=== PATIENT | female | born 1965 | race Caucasian/White ===

== ENCOUNTER 2020-07-09 09:55 | Outpatient (CLI) | payer BC, SELFPAY ==
--- NOTE | ~2020-07-09 | US_ITS ---
EXAMINATION: US venous doppler [facility] DATE: 07/09/2020 10:38 INDICATION: Left lower limb swelling. TECHNIQUE: Grayscale ultrasound images without and with compression and Doppler ultrasound images of the left lower extremity veins were obtained. COMPARISON: Ultrasound 09/18/2019 FINDINGS: The visualized portions of left common femoral vein, profunda (deep) femoral vein, femoral vein, popl iteal vein, peroneal veins, posterior tibial veins, and greater saphenous vein outflow are patent. IMPRESSION: 1. No deep venous thrombosis. Reviewed, dictated and finalized at location A.
== END 2020-07-09 09:56 | disposition home or self-care (01) ==
LOC: CHSIMG 10:01
PROVIDERS: PCP Family Medicine
DX: M79.89 Other specified soft tissue disorders (principal); M25.562 Pain in left knee
CPT/HCPCS: 93971

== ENCOUNTER → 2020-09-24 10:55 | Outpatient (CLI) | payer BC, SELFPAY ==
--- NOTE | ~2020-09-24 | CT_ITS ---
EXAMINATION: CT knee LT wo con DATE: 09/24/2020 11:15 INDICATION: Left knee pain post total knee replacement TECHNIQUE: High resolution computed tomography (CT) of the left knee was performed without intravenou s contrast. Additional sagittal and coronal reconstructions were performed. Automated exposure contro l and iterative reconstruction technique were employed. The dose-length product was 186.30 mGy-cm. COMPARISON: None FINDINGS: Left total knee arthroplasty with patellar resurfacing which appears well seated with no periprosthet ic lucency to suggest loosening or infection. No fracture. Negligible physiologic amount of fluid at the suprapatellar pouch. Sagittally oriented band of postoperative scarring the subcutaneous fat ante rior to the knee. Soft tissues are otherwise unremarkable. IMPRESSION: 1. Expected appearance of a left total knee arthroplasty. No joint effusion or acute osseous abnormal ity. Reviewed, dictated and finalized at [facility]. R IMPRESSION: 1. Expected appearance of a left total knee arthroplasty. No joint effusion or acute osseous abnormality.
== END ==
DX: M25.562 Pain in left knee (principal); Z96.652 Presence of left artificial knee joint
CPT/HCPCS: 73700

== ENCOUNTER → 2020-11-30 11:03 | Outpatient (CLI) | payer BC, SELFPAY ==
--- NOTE | ~2020-11-30 | MM_ITS ---
EXAMINATION: MM screening fidelina BI w valentina HISTORY: Screening TECHNIQUE: Craniocaudal and mediolateral oblique 3-D tomosynthesis images were obtained and synthetic 2-D images were generated. CAD analysis was submitted and interpreted. COMPARISON: No prior mammogram is available for comparison at this institution. BREAST PARENCHYMAL COMPOSITION: There are scattered areas of fibroglandular density. FINDINGS: There is no evidence of suspicious mass, calcification, or architectural distortion to sugg est malignancy in either breast. There has been no suspicious interval change. IMPRESSION: 1. No mammographic evidence of malignancy. 2. Recommend routine screening mammography in one year. BI-RADS Category 1: Negative Reviewed, dictated and finalized at location A. E HOST
== END ==
PROVIDERS: PCP Family Medicine; Visit Provider Family Medicine
DX: Z12.31 Encounter for screening mammogram for malignant neoplasm of breast (principal)
CPT/HCPCS: 77063; 77067

== ENCOUNTER 2021-02-03 10:32 | Outpatient (CLI) | payer BC, SELFPAY ==
--- NOTE | ~2021-02-03 | CT_ITS ---
EXAMINATION: CT lung screening DATE: 02/03/2021 11:23 INDICATION: History of tobacco dependence. TECHNIQUE: Computed tomography (CT) of the chest was performed without intravenous contrast. The dose -length product was 222.67 mGy-cm. Automated exposure control and iterative reconstruction technique were employed. COMPARISON: None FINDINGS: Mild mediastinal lymphadenopathy, likely reactive. No significant pleural or pericardial ef fusion. Heart size normal. There is high density material dependently in the gallbladder which may re present stone or sludge. There are punctate nonobstructing right renal stones. No endobronchial lesio ns. There is some solid nodule in the lingula measuring 1.4 x 0.6 cm. No other pulmonary nodules or m asses. Mild thoracic spondylosis. No lytic or blastic lesions are identified. IMPRESSION: 1. Lung-Rads 4A: Three-month low dose CT or PET CT follow-up recommended. Reviewed, dictated and finalized at location B.
--- NOTE | ~2021-02-03 | XR_ITS ---
EXAMINATION: XR thoracic spine 3V EXAM DATE: 02/03/2021 11:22 INDICATION: Pain from pedicle around rib cage mid to low R ant ribs. TECHNIQUE: Frontal and lateral projections of the thoracic spine as well as lateral swimmers projecti on of the upper thoracic spine for interpretation. Comparison is made to prior examination from 2012. FINDINGS: There is mild mid thoracic disc disease. The vertebral body and disc heights are otherwise well maintained. The vertebral bodies are aligned in the AP dimension. The pedicles are symmetric. T here are no bony erosions identified. Paraspinal soft tissue is unremarkable. IMPRESSION: Mild mid thoracic disc disease. Reviewed, dictated and finalized at location A.
== END 2021-02-03 10:33 | disposition home or self-care (01) ==
PROVIDERS: PCP Family Medicine; Visit Provider Family Medicine
DX: M54.14 Radiculopathy, thoracic region (principal); Z12.2 Encounter for screening for malignant neoplasm of respiratory organs; Z87.891 Personal history of nicotine dependence
CPT/HCPCS: 71271; 72072

== ENCOUNTER 2021-02-04 15:42 | Outpatient (CLI) | payer BC, SELFPAY ==
--- NOTE | ~2021-02-04 | CT_ITS ---
EXAMINATION: CT abdomen w con DATE: 02/04/2021 16:39 INDICATION: Left upper quadrant abdominal pain. TECHNIQUE: Computed tomography (CT) of the abdomen was performed with 100 mL Omnipaque 350 intravenou s contrast. Automated exposure control and iterative reconstruction technique were employed. The dose -length product was 988.59 mGy-cm. COMPARISON: CT abdomen and pelvis 06/03/15 FINDINGS: The visualized portions of the lung bases demonstrate minimal atelectasis. No pleural effus ion. The heart size is normal. No pericardial effusion. There are chronic low-attenuation lesions in the liver measuring up to 10 mm, likely benign. There is a chronic 10 mm hyperenhancing mass in right hepatic lobe, likely benign. There are gallstones in the gallbladder, which is normal in size. The s pleen, pancreas, and adrenal glands are normal. There are cysts in the kidneys measuring up to 11 mm on the right. There is a 2 mm stone in right kidney. There is diverticulosis of the colon without karina dence of diverticulitis. There are no dilated loops of bowel. The appendix is normal. There are no pa thologically enlarged lymph nodes. There is no free intraperitoneal fluid. There is mild lumbar spond ylosis. IMPRESSION: 1. Cholelithiasis. No evidence of acute cholecystitis. Reviewed, dictated and finalized at location A.
== END 2021-02-04 15:43 | disposition home or self-care (01) ==
LOC: CHSIMG 15:44
PROVIDERS: PCP Family Medicine; Visit Provider Family Medicine
DX: R10.12 Left upper quadrant pain (principal)
CPT/HCPCS: 74160; Q9967

== ENCOUNTER 2021-06-07 15:19 | Emergency (ER) | payer BC, SELFPAY ==
--- NOTE | ~2021-06-07 | CT_ITS ---
EXAMINATION: CTA chest PE protocol DATE: 06/07/2021 16:24 INDICATION: Chest and epigastric pain TECHNIQUE: Computed tomography angiography (CTA) of the chest was performed with 100 mL Omnipaque-350 intravenous contrast timed to evaluate the pulmonary arteries. Coronal maximum intensity projection 3D-reconstructions were created by the technologist. The dose-length product (DLP) was 867.98 mGy-cm. Automated exposure control and iterative reconstruction technique were employed. COMPARISON: 02/03/2021 FINDINGS: The pulmonary arteries are well-opacified. No pulmonary embolism is identified. There is mi ld emphysema. The lungs are free of acute opacities. There is no pleural effusion or pneumothorax. Th e previously described area of infection/inflammation of the lingula has resolved. The heart size is normal. There is stable, mild right paratracheal lymphadenopathy, likely reactive. Cholelithiasis is noted. There is mild thoracic spondylosis. IMPRESSION: 1. No pulmonary embolism or acute cardiopulmonary abnormality. 2. Resolved infection/inflammation of the lingula. Reviewed, dictated and finalized at location A.
--- NOTE | 2021-06-07 15:23 | ECG_ITS ---
Measurements Intervals [place] Rate: 54 P: 20 NE: 197 QRS: -24 QRSD: 118 T: -8 QT: 477 QTc: 453 Interpretive Statements SINUS BRADYCARDIA INTRAVENTRICULAR CONDUCTION DELAY EARLY PRECORDIAL R/S TRANSITION VOLTAGE CRITERIA FOR LVH BORDERLINE T WAVE ABNORMALITY- INFERIOR LEADS BORDERLINE ECG Electronically Signed On 06-07-2021 18:20:20 CDT by Vincenzo Ramires D.O.
--- NOTE | 2021-06-07 15:23 | ED.CHESTPAIN ---
HPI - Chest Pain General Chief Complaint: Chest Pain Stated Complaint: ambulance Time Seen by Provider: 06/07/21 15:23 Source: patient Mode of arrival: ambulatory Limitations: no limitations History of Present Illness HPI narrative: Patient comes in with pain which started at 2am, and has been severe since that time, but was relieved completely after she got a little fentanyl from the ambulance. This extended into her lower sternal area. She had a brief spell of diaphoresis with this, and some mild nausea. These spontaneously resolved. She denies shortness of breath, cough fever and chills. She denies any chest pain, with this. complaint: chest pain Onset (ago): hour(s) Timing of current episode: constant Prior episodes: No Onset: during rest Pain location: substernal and epigastric Pain radiation: none Severity: severe Quality: burning Relieving factors: nothing Exacerbating factors: nothing Associated symptoms: nausea Treatment prior to arrival: aspirin Risk Factors Coronary artery disease risk factors: smoking history Pulmonary embolism risk factors: clotting disorder Related Data Home Medications Medication Instructions Recorded Confirmed escitalopram oxalate 10 mg PO DAILY 06/07/21 06/07/21 levothyroxine 125 mcg PO DAILY 06/07/21 06/07/21 Allergies Allergy/AdvReac Type Severity Reaction Status Date / Time No Known Allergies Allergy Unknown Verified 06/07/21 15:53 Review of Systems Constitutional: Constitutional: Reports no additional constitutional complaints Eyes: Eyes: Reports no additional eye complaints ENT: Reports system reviewed and no additional complaints, except as documented Cardiovascular: Cardiovascular: Reports no additional cardiovascular complaints Respiratory: Respiratory: Reports no additional respiratory complaints Gastrointestinal: Gastrointestinal: Reports abdominal pain and Reports nausea Genitourinary: Genitourinary: Reports no additional female genitourinary complaints Musculoskeletal: Musculoskeletal: Reports no additional musculoskeletal complaints Integumentary/Breasts: Skin/Breast: Reports system reviewed and no additional complaints, except as docu Neurologic: Reports system reviewed and no additional complaints, except as documented Psychiatric: Psychiatric: Reports no additional psychiatric complaints Endocrine: Endocrine: Reports no additional endocrine complaints Hematologic/Lymphatic: Hematologic/Lymphatic: Reports no additional hematologic/lymphatic complaints Allergic/Immunologic: Allergic/Immunologic: Reports no additional allergic/immunologic complaints PMFSH Past Medical History Medical History (Updated 06/07/21 @ 19:14 by Cody Xiao MD) delivery delivered Chronic GERD Depression Factor 5 Leiden mutation, heterozygous Hypothyroid Surgical History Surgical History H/O hand surgery H/O knee surgery Family History Family History Mother Diabetes mellitus Family history of malignant neoplasm Other No significant family history Social History Social History (Updated 06/07/21 @ 19:15 by Cody Xiao MD) Smoking status: Former smoker Alcohol intake: current Alcohol use details: minimal Gender identity (if verbalized by the patient): Female Exam Const: General: healthy appearing and no acute distress Orientation/consciousness: patient oriented x3 HENMT: Head: normal to inspection Ears: external ears normal and TM's normal bilaterally General nose exam: Normal external nose present Mouth: Yes Normal oral and palatal mucosa present Throat: posterior oropharynx normal Eyes: Conjunctivae: conjunctivae normal Neck: Neck: normal visual inspection and no lymphadenopathy Chest: Chest palpation & inspection: normal inspection of the chest Resp: Effort & Inspection: normal respiratory effort Auscul
[2021-06-07 15:39] VITALS: BP 132/73; PULSE 56; RESP 20; TEMP 36.7; O2SAT 99
[2021-06-07 15:39] LABS: Basophils Absolute Auto 0.04 K/mm3 (0.00-0.10); Basophils Percent Auto 0.6 % (0.0-1.0); Eosinophils Absolute Auto 0.13 K/mm3 (0.02-0.50); Eosinophils Percent Auto 1.8 % (1.0-6.0); Hematocrit 42.5 % (35.0-49.0); Hemoglobin 14.3 g/dL (12.0-15.0); Immature Granulocyte Absolute 0.02 K/mm3 (0.00-0.00); Immature Granulocyte Percent A 0.3 % (0.0-0.0); Lymphocytes Absolute Auto 2.36 K/mm3 (1.10-4.50); Lymphocytes Percent Auto 32.7 % (18.0-42.0); Mean Corpuscular HGB Conc 33.6 g/dL (32.0-36.0); Mean Corpuscular Hemoglobin 30.8 pg (27.0-31.0); Mean Corpuscular Volume 91.4 fL (78.0-102.0); Mean Platelet Volume 11.5 fl (9.2-11.8); Monocytes Absolute Auto 0.38 K/mm3 (0.10-0.90); Monocytes Percent Auto 5.3 % (2.0-11.0); Neutrophils Absolute Auto 4.3 K/mm3 (1.7-7.2); Neutrophils Percent Auto 59.3 % (50.0-70.0); Platelet Count Result 204 K/mm3 (150-420); Red Blood Count 4.65 M/mm3 (4.20-5.40); Red Cell Distribution Width 12.4 % (11.6-14.4); White Blood Count 7.2 K/mm3 (4.8-10.8)
[2021-06-07 15:51] VITALS: PULSE 56
[2021-06-07 15:52] LABS: D Dimer 0.99 mg/L (0.19-0.50)
[2021-06-07 15:58] LABS: Lactic Acid Reflex 2.4 mmol/L (0.4-2.0)
[2021-06-07] MEDS: MAG HYDROX/ALUMINUM HYD/SIMETH 30 ML, PHENobarb/HYOSCY/ATROPINE/SCOP 32.4 MG, LIDOCAINE... PO (15:58)
[2021-06-07 15:59] LABS: Alanine Aminotransferase 39 U/L (14-59); Albumin Level 3.7 g/dL (3.4-5.0); Alkaline Phosphatase 87 U/L (46-116); Anion Gap 13 mmol/L (8-16); Aspartate Amino Transferase 20 U/L (15-37); Bilirubin,Total 0.4 mg/dL (0.00-1.00); Blood Urea Nitrogen 14 mg/dL (7-18); Calcium 8.7 mg/dL (8.5-10.1); Carbon Dioxide 25 mmol/L (21-32); Chloride 106 mmol/L (98-108); Estimated CRCL calculation 59 ml/min; Estimated Glomerular Filt Rate 53; Glucose 130 mg/dL (70-99); NT Pro B Type Natriuretic Pept 149 pg/mL (0-125); Osmolality Calculated 300 mOsm/kg (285-295); Potassium 3.3 mmol/L (3.5-5.1); Sodium 144 mmol/L (136-145); Total Protein 6.8 g/dL (6.4-8.2); Troponin I 4.3 ng/L (0.00-60.4)
[2021-06-07 15:59] LABS: HCO3 ABG 23.5 mmol/L (23-29); Oxygen Content ABG 19.7 %vol (16.0-22.0); Oxygen Saturation ABG 96.8 % (95-97); Oxyhemoglobin 96.6 % (94-100); PCO2 ABG 31.6 mmHg (35-45); PO2 ABG 86.2 mmHg (80-90); Total Hemoglobin 14.5 g/dL; pH ABG 7.49 (7.35-7.45)
[2021-06-07 16:00] VITALS: BP 145/82; PULSE 58; RESP 20; O2SAT 98
[2021-06-07 16:00] LABS: Site Drawn LEFT RADIAL
[2021-06-07 16:01] LABS: Device ROOM AIR; Modified Allen's Test Pass
[2021-06-07 17:20] VITALS: BP 144/71; PULSE 62; RESP 20; O2SAT 99
[2021-06-07] MEDS: POTASSIUM BICARBONATE 25 MEQ TABEF 50 MEQ PO (17:22)
[2021-06-07] MEDS: SODIUM CHLORIDE 0.9% IV 1,000 ML 999 ML IV CONT (17:22)
[2021-06-07 18:00] VITALS: BP 159/92; PULSE 65; RESP 20; O2SAT 100
[2021-06-07 18:37] LABS: Reflex Lactic Acid Yes or No Add Lactic
[2021-06-07 18:49] LABS: Troponin I 4.3 ng/L (0.00-60.4)
[2021-06-07 19:00] VITALS: BP 134/66; PULSE 60; RESP 20; O2SAT 95
== END 2021-06-07 19:02 | disposition home or self-care (01) ==
PROVIDERS: Emergency Provider Emergency Medicine; PCP Family Medicine
DX: R10.13 Epigastric pain (principal)
CPT/HCPCS: 36415; 36600; 71275; 80053; 82805; 83605; 83880; 84484; 85025; 85380; 93005; 96360; 99283; 99284; A9270; J7030; Q9967

== ENCOUNTER 2021-06-20 08:07 | Outpatient (CLI) | payer BC, SELFPAY ==
--- NOTE | ~2021-06-20 | US_ITS ---
EXAMINATION: US right upper quadrant DATE: 06/20/2021 08:47 INDICATION: Right upper quadrant abdominal pain. TECHNIQUE: Multiple grayscale and Doppler ultrasound images of the abdomen were obtained. COMPARISON: CT abdomen and pelvis 02/04/2021, 06/03/2015 FINDINGS: The visualized portions of the head and body of the pancreas are normal. There is diffuse h epatic steatosis. There are 2 chronic hypoechoic masses in the liver measuring up to 1.2 cm, likely b enign. There is normal flow in main portal vein. The gallbladder is normal in size and contains galls tones. No gallbladder wall thickening or sonographic Lehman sign. The common duct is normal and measu res 5 mm. IMPRESSION: 1. Cholelithiasis. No evidence of acute cholecystitis. 2. Diffuse hepatic steatosis. Reviewed, dictated and finalized at location A.
== END 2021-06-20 08:08 | disposition home or self-care (01) ==
LOC: CHSIMG 08:11
PROVIDERS: PCP Family Medicine; Visit Provider Family Medicine
DX: R10.9 Unspecified abdominal pain (principal)
CPT/HCPCS: 76705

== ENCOUNTER 2021-07-04 07:48 | Outpatient (CLI) | payer BC, SELFPAY ==
--- NOTE | 2021-07-04 | ECHO_ITS ---
Patient Info Name: Pennie Burgos Age: 56 years : 1965 Gender: Female Ht: 65 in Wt: 207 lbs BSA: 2.11 m2 HR: 69 bpm BP: 152 / 93 mmHg Heart Rhythm: Sinus Rhythm Exam Date: 07/04/2021 8:16 AM Exam Location: [facility] Patient Status: Outpatient Admit Date: 07/04/2021 Staff Ordering Physician: Rm Lovett MD Business Broker: Danay Mcconnell RDCS Attending Provider: Rm Lovett MD Referring Physician: Bony TAVAREZ; Exam Type: CA echo doppler color flow Study Info Indications R94.31 - Abnormal electrocardiogram ECG EKG Complete two-dimensional, color flow and Doppler transthoracic echocardiogram is performed. Summary 1. Complete two-dimensional, color flow and Doppler transthoracic echocardiogram is performed. 2. Left ventricular chamber dimension is normal. 3. Left ventricular systolic function is normal, estimated at 60-65%. 4. There is mildly increased left ventricular wall thickness. 5. The left ventricular diastolic function is grade I diastolic dysfunction. 6. E/e' 10 is mildly elevated. 7. Global longitudinal strain is abnormal at -14.4%. 8. Left atrial chamber dimension is mildly enlarged. 9. No pulmonary hypertension, estimated pulmonary arterial systolic pressure is 21 mmHg. Left Ventricle E/e' 10 is mildly elevated. Global longitudinal strain is abnormal at -14.4%. Left ventricular chamber dimension is normal. Left ventricular systolic function is normal, estimated at 60-65%. There is mildly increased left ventricular wall thickness. The left ventricular diastolic function is grade I diastolic dysfunction. Right Ventricle Right ventricular chamber dimension is normal. Right ventricular systolic function is normal. Left Atria Left atrial chamber dimension is mildly enlarged. Right Atria Right atrial chamber dimension is normal. Aortic Valve The aortic valve is trileaflet. There is no aortic valve stenosis. There is no aortic valve regurgitation. Pulmonic Valve There is no pulmonic regurgitation. Mitral Valve There is no mitral valve stenosis. There is no mitral valve regurgitation. Tricuspid Valve There is no tricuspid valve regurgitation. No pulmonary hypertension, estimated pulmonary arterial systolic pressure is 21 mmHg. Pericardium/Pleural There is no pericardial effusion. Inferior Vena Cava Normal inferior vena cava with >50% collapse upon inspiration consistent with normal right atrial pressure, 5 mmHg. Aorta The aortic root size at the sinus of Valsalva is normal. Left Ventricular Outflow Tract Name Value Normal LVOT 2D LVOT Diameter 2.0 cm LVOT Doppler LVOT Peak Gradient 4 mmHg LVOT Mean Gradient 2 mmHg LVOT VTI 21 cm LVOT VTI/AV VTI Ratio 0.9 LVOT Stroke Volume 64 ml LVOT CO 4.4 l/min LVOT CI 2.1 l/min/m2 Pulmonic Valve Name
== END 2021-07-04 07:49 | disposition home or self-care (01) ==
PROVIDERS: PCP Family Medicine; Visit Provider Family Medicine
DX: R94.31 Abnormal electrocardiogram [ECG] [EKG] (principal); R10.9 Unspecified abdominal pain; I51.7 Cardiomegaly; R93.1 Abnormal findings on diagnostic imaging of heart and coronary circulation
CPT/HCPCS: 93306

== ENCOUNTER 2021-10-17 23:16 | Emergency (ER) | payer OTHER, SELFPAY ==
[2021-10-17 23:35] VITALS: BP 144/70; PULSE 70; RESP 18; TEMP 36.6; O2SAT 97
--- NOTE | 2021-10-17 23:40 | ED.WOUNDLAC ---
HPI - Wound/Laceration General Chief Complaint: Wound/Laceration Stated Complaint: LACERATION Source: patient and RN notes reviewed Mode of arrival: ambulatory Limitations: no limitations History of Present Illness HPI narrative: patient was running in the rain and slipped on the concrete. She sustained a small laceration on her upper lip midline. She denies any LOC. Onset (ago): minute(s) (20) Location: face (upper lip) Place: outdoors Context: accidental Associated symptoms: none Treatments prior to arrival: cold therapy Related Data Home Medications Medication Instructions Recorded Confirmed aspirin 81 mg PO DAILY 10/18/21 10/18/21 escitalopram oxalate 10 mg PO DAILY 10/18/21 10/18/21 levothyroxine [Euthyrox] 100 mcg PO DAILY 10/18/21 10/18/21 omeprazole 20 mg PO DAILY 10/18/21 10/18/21 Allergies Allergy/AdvReac Type Severity Reaction Status Date / Time No Known Allergies Allergy Unknown Verified 06/07/21 15:53 Review of Systems Review of Systems: All systems reviewed & are unremarkable except as noted in HPI and below PMFSH Past Medical History Medical History delivery delivered Chronic GERD Depression Factor 5 Leiden mutation, heterozygous Hypothyroid Surgical History Surgical History H/O hand surgery H/O knee surgery Family History Family History Mother Diabetes mellitus Family history of malignant neoplasm Other No significant family history Social History Social History Smoking status: Former smoker Alcohol intake: current Alcohol use details: minimal Gender identity (if verbalized by the patient): Female Sexual Orientation (if Verbalized by the Patient): Straight or Heterosexual Exam Const: General: healthy appearing, no acute distress and alert Nutritional Appearance: well nourished Orientation/consciousness: patient oriented x3 Other: GCS 15 HENMT: Head: normal to inspection Ears: external ears normal Face and sinus: normal facial exam Mouth: Yes moist mucous membranes Eyes: Conjunctivae: conjunctivae normal Pupils: Equal, round and reactive pupils present EOM: EOMs intact bilaterally Neck: Neck: normal visual inspection Resp: Effort & Inspection: normal respiratory effort Auscultation: clear to auscultation bilaterally Cardio: Rate: regular rate Rhythm: regular rhythm GI: GI Palp: Yes Soft to palpation and No Tenderness to palpation present (GI) Auscultation: normal bowel sounds Back/Spine/Pelvis: Cervical Spine: cervical ROM normal Thoracic/Lumbar Spine: thoraco-lumbar ROM normal Skin: General skin exam: normal color Rashes: no rashes Wounds: wounds noted laceration upper lip size (0.5 cm) Neuro: General: patient oriented x3, moves all extremities, no focal motor deficits and CN's II-XI intact bilaterally Speech: normal speech Gait exam (Neuro): Normal gait present Extrem: General: normal to inspection and no clubbing, cyanosis or edema Psych: Appearance: grossly normal and well kempt Mental Status: mental status grossly normal Affect: normal affect Attitude: cooperative Thought content: Yes Normal thought content present Course Vital Signs Vital signs: Vital Signs Temperature 36.6 C 10/17/21 23:35 Pulse Rate 70 10/17/21 23:35 Respiratory Rate 18 10/17/21 23:35 Blood Pressure 144/70 H 10/17/21 23:35 Pulse Oximetry 97 10/17/21 23:35 Temperature 36.2 C L 10/18/21 00:20 Pulse Rate 80 10/18/21 00:20 Respiratory Rate 18 10/18/21 00:20 Blood Pressure 136/88 10/18/21 00:20 Pulse Oximetry 97 10/18/21 00:20 Procedures Laceration Laceration 1: Date: 10/18/21 Site: lip Size (cm): 0.5 Description: linear Depth: simple, single layer Local Anesthet
[2021-10-18] MEDS: LIDO 1%/EPINEPHRINE 1:100,000 20 ML VIAL INFILTRATE (00:06)
[2021-10-18] MEDS: TETANUS,DIPHTHERIA,AC PERTUSSIS ADULT 0.5 ML (ADACEL) IM (00:15)
[2021-10-18 00:20] VITALS: BP 136/88; PULSE 80; RESP 18; TEMP 36.2; O2SAT 97
== END 2021-10-18 00:25 | disposition home or self-care (01) ==
PROVIDERS: Emergency Provider Emergency Medicine; PCP Family Medicine
DX: S01.511A Laceration without foreign body of lip, initial encounter (principal); W01.0XXA Fall on same level from slipping, tripping and stumbling without subsequent striking against object, initial encounter
CPT/HCPCS: 12011; 90471; 90715; 99282

== ENCOUNTER → 2021-12-20 10:32 | Outpatient (CLI) | payer OTHER, SELFPAY ==
--- NOTE | ~2021-12-20 | MM_ITS ---
EXAMINATION: MM screening fidelina BI w valentina HISTORY: Screening TECHNIQUE: Craniocaudal and mediolateral oblique 3-D tomosynthesis images were obtained and synthetic 2-D images were generated. CAD analysis was submitted and interpreted. COMPARISON: 11/30/2020 BREAST PARENCHYMAL COMPOSITION: There are scattered areas of fibroglandular density. FINDINGS: There is no evidence of suspicious mass, calcification, or architectural distortion to sugg est malignancy in either breast. There has been no suspicious interval change. IMPRESSION: 1. No mammographic evidence of malignancy. 2. Recommend routine screening mammography in one year. BI-RADS Category 1: Negative Reviewed, dictated and finalized at location A. ATIONS DISPATCHER
== END ==
PROVIDERS: PCP Family Medicine; Visit Provider Family Medicine
DX: Z12.31 Encounter for screening mammogram for malignant neoplasm of breast (principal)
CPT/HCPCS: 77063; 77067

== ENCOUNTER 2022-02-20 10:54 | Outpatient (CLI) | payer OTHER, SELFPAY ==
[2022-02-20 11:17] LABS: Basophils Absolute Auto 0.06 K/mm3 (0.00-0.10); Basophils Percent Auto 0.9 % (0.0-1.0); Eosinophils Absolute Auto 0.18 K/mm3 (0.02-0.50); Eosinophils Percent Auto 2.6 % (1.0-6.0); Hematocrit 43.3 % (35.0-49.0); Hemoglobin 14.4 g/dL (12.0-15.0); Immature Granulocyte Absolute 0.01 K/mm3 (0.00-0.00); Immature Granulocyte Percent A 0.1 % (0.0-0.0); Lymphocytes Absolute Auto 2.31 K/mm3 (1.10-4.50); Lymphocytes Percent Auto 33.8 % (18.0-42.0); Mean Corpuscular HGB Conc 33.3 g/dL (32.0-36.0); Mean Corpuscular Hemoglobin 30.8 pg (27.0-31.0); Mean Corpuscular Volume 92.7 fL (78.0-102.0); Mean Platelet Volume 11.2 fl (9.2-11.8); Monocytes Absolute Auto 0.38 K/mm3 (0.10-0.90); Monocytes Percent Auto 5.6 % (2.0-11.0); Neutrophils Absolute Auto 3.9 K/mm3 (1.7-7.2); Platelet Count Result 232 K/mm3 (150-420); Red Blood Count 4.67 M/mm3 (4.20-5.40); Red Cell Distribution Width 12.5 % (11.6-14.4); White Blood Count 6.8 K/mm3 (4.8-10.8)
[2022-02-20 11:18] LABS: Add Urine Microscopic? NO; Appearance Urine Clear (Clear); Bilirubin Urine Negative (Negative); Blood Urine Negative (Negative); Color Urine Light Yellow (Yellow); Glucose Urine UA Negative (Negative); Ketones Urine Negative (Negative); Leukocyte Esterase Ur Negative (Negative); Nitrate Urine Negative (Negative); Protein Urine Negative (Negative); Specific Grav Ur <= 1.005 (1.010-1.020); Urobilinogen Urine 0.2 mg/dL (0.2-1.0); pH Urine 6.5 (5.0-8.0)
[2022-02-20 11:32] LABS: Partial Thromboplastin Time 26.6 SEC (23.90-30.70); Prothrombin Time 10.3 Seconds (9.50-12.10)
[2022-02-20 12:23] LABS: Erythrocyte Sedimentation Rate 10 mm/hr (0-20)
[2022-02-20 12:35] LABS: Alanine Aminotransferase 35 U/L (14-59); Alkaline Phosphatase 106 U/L (46-116); Amylase 69 U/L (25-115); Anion Gap 8 mmol/L (8-16); Aspartate Amino Transferase 20 U/L (15-37); Bilirubin,Total 0.3 mg/dL (0.00-1.00); Blood Urea Nitrogen 12 mg/dL (7-18); Calcium 8.8 mg/dL (8.5-10.1); Carbon Dioxide 28 mmol/L (21-32); Chloride 105 mmol/L (98-108); Estimated Glomerular Filt Rate 59; Ferritin 104 ng/mL (8-252); GGT 31 U/L (5-55); Glucose 94 mg/dL (70-99); Iron 70 ug/dL (50-170); Lipase 186 U/L (73-393); Osmolality Calculated 291 mOsm/kg (285-295); Percent Iron Saturation 23 % (12-57); Potassium 4.5 mmol/L (3.5-5.1); Sodium 141 mmol/L (136-145); Total Protein 6.8 g/dL (6.4-8.2)
[2022-02-23 20:05] LABS: ANA Cascade Screen Negative (Negative)
[2022-02-24 20:16] LABS: Hepatitis A Antibody IgM Nonreactive; Hepatitis B Core Antibody Nonreactive (Nonreactive); Hepatitis B Surface Antigen Nonreactive (Nonreactive); Hepatitis C Signal to Cutoff 0.01 ratio (<1.00); Hepatitis C Virus Antibody Nonreactive (Nonreactive)
[2022-02-25 12:24] LABS: Actin Antibody (IgG) <20 U (<20)
== END 2022-02-20 10:55 | disposition home or self-care (01) ==
LOC: CHSLAB 10:57
PROVIDERS: PCP Family Medicine; Visit Provider Family Medicine
DX: K76.0 Fatty (change of) liver, not elsewhere classified (principal); R10.13 Epigastric pain
CPT/HCPCS: 36415; 80053; 80074; 81003; 82150; 82728; 82977; 83516; 83540; 83550; 83690; 85025; 85610; 85652; 85730; 86038; 86376

== ENCOUNTER 2022-02-24 08:44 | Outpatient (CLI) | payer OTHER, SELFPAY ==
--- NOTE | ~2022-02-24 | US_ITS ---
EXAMINATION: US right upper quadrant DATE: 02/24/2022 09:13 INDICATION: Epigastric abdominal pain. TECHNIQUE: Multiple grayscale and Doppler ultrasound images of the abdomen were obtained. COMPARISON: CT abdomen 02/04/2021, abdomen ultrasound 06/20/2021 FINDINGS: The visualized portions of the head and body of the pancreas are normal. There is diffuse h epatic steatosis. Again seen is an 8 mm hypoechoic mass in the liver, likely benign. There is normal flow in main portal vein. The gallbladder is normal in size and contains gallstones. No gallbladder w all thickening or sonographic Lehman sign. The common duct is normal measures 5 mm. IMPRESSION: 1. Cholelithiasis. No evidence of acute cholecystitis. 2. Diffuse hepatic steatosis. Reviewed, dictated and finalized at location B.
== END 2022-02-24 08:45 | disposition home or self-care (01) ==
LOC: CHSIMG 08:45
PROVIDERS: PCP Family Medicine; Visit Provider Family Medicine
DX: R10.13 Epigastric pain (principal)
CPT/HCPCS: 76705

== ENCOUNTER 2022-03-02 10:10 | Outpatient (CLI) | payer OTHER, SELFPAY ==
--- NOTE | ~2022-03-02 | NM_ITS ---
EXAMINATION: NM hepatobiliary w pharm DATE: 03/02/2022 12:43 INDICATION: Epigastric pain . Hepatic steatosis. COMPARISON: None. TECHNIQUE: 5.9 mCi Tc-99m mebrofenin (Choletec) was administered intravenously. Scintigraphic images of the abdomen were obtained for one hour. 2 mcg sincalide (Kinevac) was administered by slow intrav enous infusion, and imaging was continued for 30 minutes. Gallbladder ejection fraction was calculate d by the technologist. FINDINGS: There is normal clearance of radiotracer from the blood pool. There is homogeneous tracer uptake by t he liver. Activity progresses to the gallbladder and bowel. The gallbladder ejection fraction (GBEF) is 19% (normal 10-90%, but most patient with gallbladder dysfunction have GBEF < 35% which does over lap with the normal range). IMPRESSION: 1. Gallbladder ejection fraction is at the lower limits of normal. This could be normal but is also within the range of overlap with gallbladder dysfunction or chronic cholecystitis in the appropriate clinical setting. Reviewed, dictated and finalized at location B.
== END 2022-03-02 10:11 | disposition home or self-care (01) ==
LOC: CHSIMG 10:10
PROVIDERS: PCP Family Medicine; Visit Provider Family Medicine
DX: R10.13 Epigastric pain (principal); K76.0 Fatty (change of) liver, not elsewhere classified
CPT/HCPCS: 78227; A9537; J2805

== ENCOUNTER 2022-06-16 00:11 | Day surgery (SDC) | payer OTHER, SELFPAY ==
[2022-05-28 12:46] VITALS: BMI 33.3
[2022-06-16 09:49] VITALS: BP 143/67; PULSE 67; RESP 18; TEMP 36.6; O2SAT 94
[2022-06-16] MEDS: LACTATED RINGERS 1,000 ML 150 ML IV CONT (09:56)
--- NOTE | 2022-06-16 10:58 | WPDANESEPPF ---
Anes - Initial Pre Proc Eval Procedure: Operation Date: 06/16/22 10:30 Proposed Procedures p Esophagogastroduodenoscopy - Chris Sam MD Date/Time: 06/16/22 10:58 Surgeon: Chris Sam MD Pre Op Diagnosis: epigastric pain Patient Data Age: 57 Gender: F Height: 1.65 m Weight: 101.3 kg Last Vital Signs Temp 97.9 F 06/16/22 09:49 Pulse 67 06/16/22 09:49 Resp 18 06/16/22 09:49 BP 143/67 H 06/16/22 09:49 Pulse Ox 94 06/16/22 09:49 O2 Del Method Room Air 06/16/22 09:49 Allergies Allergy/AdvReac Type Severity Reaction Status Date / Time No Known Allergies Allergy Unknown Verified 06/16/22 09:47 Home Medications Medication Instructions Recorded Confirmed Type aspirin 81 mg tablet 81 mg PO DAILY 10/18/21 06/16/22 History escitalopram oxalate 20 mg tablet 10 mg PO DAILY 10/18/21 06/16/22 History levothyroxine 100 mcg tablet 100 mcg PO DAILY 10/18/21 06/16/22 History (Euthyrox) omeprazole 20 mg tablet,delayed 20 mg PO DAILY 10/18/21 06/16/22 History release Patient hx anesthesia problems: none Family hx anesthesia problems: none Results Review: All pre-operative results and documents have been reviewed as part of the pre-operative evaluation. [facility] Past Medical History Medical History (Updated 04/28/22 @ 14:41 by Chris Sam MD) Bloating delivery delivered Cholelithiasis Chronic GERD Colon cancer screening Colon, diverticulosis Depression Factor 5 Leiden mutation, heterozygous Hypothyroid Surgical History Surgical History H/O hand surgery H/O knee surgery Family History Family History Mother Diabetes mellitus Family history of malignant neoplasm Other No significant family history Social History Social History Smoking packs per day: 1 Smoking cigarettes per day: 20.0 Years smoked: 40 Smoking pack-years: 40.00 Smoking status: Former smoker Alcohol intake: never Alcohol use details: minimal Substance use: never Substance use type: does not use Living arrangements: with family Gender identity (if verbalized by the patient): Female Sexual Orientation (if Verbalized by the Patient): Straight or Heterosexual Spiritual care concerns: No Anes - Eval Final PreProcedure Day of Procedure 06/16/22 10:58 Patient weight: obese Heart: regular rate and rhythm Lungs: clear to auscultation Airway: Mallampati scale class II Neurological: alert and oriented Last oral intake: >/= 8 hours ASA classification: II Emergent: no Anesthetic plan: proceed Anesthesia type and monitoring: general GIVS and standard monitoring Results Review: All pre-operative results and documents have been reviewed as part of the pre-operative evaluation. Informed Consent: The patient's anesthetic plan and its attendant risks and benefits were discussed with the patient/family/POA. Questions were solicited and answers provided to the satisfaction of the patient/family/POA.
--- NOTE | 2022-06-16 11:04 | PM.HPGS ---
History of Present Illness History of Present Illness Consent: Risks, benefits, and alternatives have been discussed and questions answered. Patient agrees to proceed with procedure. Chief complaint: epigastric pain Narrative: Pennie Burgos is a 57 year old female with intermittent epigastric pain, no triggers, better after using liquid tylenol, she has been on omeprazole for a while. US showed cholelithiasis. Review of Systems Constitutional: Constitutional: Denies headache(s) and Denies weakness Eyes: Eyes: Denies blurry vision ENT: Reports Normal hearing present, Denies headache(s) and Denies neck pain Cardiovascular: Cardiovascular: Denies chest pain and Denies dyspnea Respiratory: Respiratory: Denies dyspnea Gastrointestinal: Gastrointestinal: Reports no additional gastrointestinal complaints Genitourinary: Genitourinary: Denies dysuria Musculoskeletal: Musculoskeletal: Denies neck pain Integumentary/Breasts: Skin/Breast: Denies dry skin Neurologic: Reports Normal hearing present, Denies headache(s) and Denies weakness Psychiatric: Psychiatric: Denies anxiety Endocrine: Endocrine: Denies change in body appearance Hematologic/Lymphatic: Hematologic/Lymphatic: Denies easy bleeding Allergic/Immunologic: Allergic/Immunologic: Denies urticaria PMFSH Past Medical History Medical History (Updated 06/16/22 @ 11:05 by Chris Sam MD) Bloating delivery delivered Cholelithiasis Chronic GERD Colon cancer screening Colon, diverticulosis Depression Epigastric pain Factor 5 Leiden mutation, heterozygous Hypothyroid Surgical History Surgical History H/O hand surgery H/O knee surgery Family History Family History Mother Diabetes mellitus Family history of malignant neoplasm Other No significant family history Social History Social History Smoking packs per day: 1 Smoking cigarettes per day: 20.0 Years smoked: 40 Smoking pack-years: 40.00 Smoking status: Former smoker Alcohol intake: never Alcohol use details: minimal Substance use: never Substance use type: does not use Living arrangements: with family Gender identity (if verbalized by the patient): Female Sexual Orientation (if Verbalized by the Patient): Straight or Heterosexual Spiritual care concerns: No Meds Home Medications and Allergies Home Medications Medication Instructions Recorded Confirmed Type aspirin 81 mg tablet 81 mg PO DAILY 10/18/21 06/16/22 History escitalopram oxalate 20 mg tablet 10 mg PO DAILY 10/18/21 06/16/22 History levothyroxine 100 mcg tablet 100 mcg PO DAILY 10/18/21 06/16/22 History (Euthyrox) omeprazole 20 mg tablet,delayed 20 mg PO DAILY 10/18/21 06/16/22 History release Allergies Allergy/AdvReac Type Severity Reaction Status Date / Time No Known Allergies Allergy Unknown Verified 06/16/22 09:47 Vital Signs Vital Signs - 24 hr 06/16/22 09:49 Temperature 97.9 F Pulse Rate 67 Respiratory Rate 18 Blood Pressure 143/67 H Pulse Oximetry 94 Oxygen Delivery Room Air Exam Const: General: comfortable and no acute distress HENMT: General nose exam: Normal nares present Eyes: General: appearance normal, both eyes and all related structures Neck: Neck: no JVD Resp: Auscultation: clear to auscultation bilaterally Cardio: Rate: regular rate Rhythm: regular rhythm GI: Inspection: non-distended GI Palp: Yes Soft to palpation Skin: General skin exam: normal color Neuro: General: gait normal Speech: normal speech Extrem: General: normal to inspection Psych: Mental Status: mental status grossly normal Assessment and Plan Assessment and plan (1) Epigastric pain: Code(s): R10.13 - Epigastric pain Status: Acute Assessment and Plan: egd
[2022-06-16 11:19] VITALS: BP 132/76; PULSE 68; RESP 23; O2SAT 97
[2022-06-16 11:29] VITALS: BP 147/82; PULSE 65; RESP 19; O2SAT 96
[2022-06-16 11:39] VITALS: BP 147/84; PULSE 70; RESP 17; O2SAT 99
== END 2022-06-16 11:49 | disposition home or self-care (01) ==
PROVIDERS: PCP Family Medicine; Visit Provider Internal Medicine Gastroenterology
PROC: 0DJ08ZZ Inspection of Upper Intestinal Tract, Via Natural or Artificial Opening Endoscopic (ICD-10-PCS; CPT 43235; principal; 2022-06-16 10:30)
DX: Z12.11 Encounter for screening for malignant neoplasm of colon (principal); Z86.010 Personal history of colon polyps; K64.8 Other hemorrhoids; K57.30 Diverticulosis of large intestine without perforation or abscess without bleeding; F41.9 Anxiety disorder, unspecified; F32.A Depression, unspecified; R53.83 Other fatigue; I10 Essential (primary) hypertension; G47.33 Obstructive sleep apnea (adult) (pediatric); F12.90 Cannabis use, unspecified, uncomplicated; E07.9 Disorder of thyroid, unspecified
CPT/HCPCS: 45378; 88305; J2704; J7120

== ENCOUNTER 2022-06-20 14:55 | Outpatient (CLI) | payer OTHER, SELFPAY ==
[2022-06-20 15:14] LABS: Basophils Absolute Auto 0.06 K/mm3 (0.00-0.10); Basophils Percent Auto 0.8 % (0.0-1.0); Eosinophils Absolute Auto 0.21 K/mm3 (0.02-0.50); Eosinophils Percent Auto 2.7 % (1.0-6.0); Hematocrit 42.2 % (35.0-49.0); Hemoglobin 14.1 g/dL (12.0-15.0); Immature Granulocyte Absolute 0.02 K/mm3 (0.00-0.00); Immature Granulocyte Percent A 0.3 % (0.0-0.0); Lymphocytes Percent Auto 37.3 % (18.0-42.0); Mean Corpuscular HGB Conc 33.4 g/dL (32.0-36.0); Mean Corpuscular Hemoglobin 30.6 pg (27.0-31.0); Mean Corpuscular Volume 91.5 fL (78.0-102.0); Mean Platelet Volume 11.5 fl (9.2-11.8); Monocytes Absolute Auto 0.55 K/mm3 (0.10-0.90); Monocytes Percent Auto 7.1 % (2.0-11.0); Neutrophils Percent Auto 51.8 % (50.0-70.0); Platelet Count Result 230 K/mm3 (150-420); Red Blood Count 4.61 M/mm3 (4.20-5.40); Red Cell Distribution Width 12.2 % (11.6-14.4); White Blood Count 7.8 K/mm3 (4.8-10.8)
[2022-06-20 15:44] LABS: Alanine Aminotransferase 28 U/L (14-59); Albumin Level 3.8 g/dL (3.4-5.0); Alkaline Phosphatase 114 U/L (46-116); Anion Gap 8 mmol/L (8-16); Aspartate Amino Transferase 14 U/L (15-37); Bilirubin,Total 0.4 mg/dL (0.00-1.00); Blood Urea Nitrogen 14 mg/dL (7-18); Calcium 8.8 mg/dL (8.5-10.1); Carbon Dioxide 28 mmol/L (21-32); Chloride 105 mmol/L (98-108); Estimated Glomerular Filt Rate 56; Glucose 87 mg/dL (70-99); Osmolality Calculated 291 mOsm/kg (285-295); Potassium 3.8 mmol/L (3.5-5.1); Sodium 141 mmol/L (136-145); Total Protein 6.9 g/dL (6.4-8.2)
== END 2022-06-20 14:56 | disposition home or self-care (01) ==
LOC: CHSLAB 14:58
PROVIDERS: PCP Family Medicine; Visit Provider Family Medicine
DX: E03.8 Other specified hypothyroidism (principal); K76.0 Fatty (change of) liver, not elsewhere classified
CPT/HCPCS: 36415; 80053; 84443; 85025

== ENCOUNTER 2022-10-12 15:06 | Emergency (ER) | payer OTHER, SELFPAY ==
--- NOTE | ~2022-10-12 | XR_ITS ---
XR chest 2V DATE: 10/12/2022 15:43 INDICATION: Productive cough, congestion, generalized body aches TECHNIQUE: PA and lateral views COMPARISON: 06/07/2021 CTA chest 01/06/2018 two-view chest FINDINGS: Bilateral cervical ribs. Normal heart size. No hilar or mediastinal enlargement. No pulmonary infiltrate or consolidation, ple ural effusion or pulmonary vascular congestion or pneumothorax. IMPRESSION: No active cardiopulmonary disease Reviewed, dictated and finalized at location B. [employer]
[2022-10-12 15:15] VITALS: BP 146/87; PULSE 82; RESP 18; TEMP 36.9; O2SAT 98
--- NOTE | 2022-10-12 15:16 | ED.URI ---
HPI - URI/Sore Throat General Chief Complaint: Upper Respiratory Infection Stated Complaint: chest, and back pains Time Seen by Provider: 10/12/22 15:15 Source: patient and RN notes reviewed Mode of arrival: ambulatory Limitations: no limitations History of Present Illness HPI Narrative: patient states that she got her flu shot 9 days ago. Then she began having cough body aches. She has been having some increased back ache and some abdominal soreness from coughing so much. She says she is coughing up some yellow phlegm. She already went to her doctor and is currently on amoxicillin and Tessalon Perles since yesterday. She comes in today because she still coughing. MD elicited complaint: fever and cough Onset (ago): day(s) (9) Consistency: intermittent and progressively worsening Severity: moderate Description of mucous: yellow Able to tolerate fluids by mouth: Yes Exacerbating factors: other (coughing) Relieving factors: nothing Associated symptoms: fever (subj), myalgias, headache and abdominal pain ( sore from coughing) Treatments prior to arrival: none Related Data Home Medications Medication Instructions Recorded Confirmed aspirin 81 mg tablet 81 mg PO DAILY 10/18/21 10/12/22 escitalopram oxalate 20 mg tablet 10 mg PO DAILY 10/18/21 10/12/22 levothyroxine 100 mcg tablet 100 mcg PO DAILY 10/18/21 10/12/22 (Euthyrox) omeprazole 20 mg tablet,delayed 20 mg PO DAILY 10/18/21 10/12/22 release Allergies Allergy/AdvReac Type Severity Reaction Status Date / Time No Known Allergies Allergy Unknown Verified 10/12/22 15:23 Review of Systems Review of Systems: All systems reviewed & are unremarkable except as noted in HPI and below PMFSH Past Medical History Medical History Bloating delivery delivered Cholelithiasis Chronic GERD Colon cancer screening Colon, diverticulosis Depression Epigastric pain Factor 5 Leiden mutation, heterozygous Hypothyroid Surgical History Surgical History H/O hand surgery H/O knee surgery Family History Family History Mother Diabetes mellitus Family history of malignant neoplasm Other No significant family history Social History Social History Smoking packs per day: 1 Smoking cigarettes per day: 20.0 Years smoked: 40 Smoking pack-years: 40.00 Smoking status: Former smoker Alcohol intake: never Alcohol use details: minimal Substance use: never Substance use type: does not use Gender identity (if verbalized by the patient): Female Sexual Orientation (if Verbalized by the Patient): Straight or Heterosexual Spiritual care concerns: No Exam Const: General: healthy appearing, no acute distress and alert Nutritional Appearance: well nourished and obese Orientation/consciousness: patient oriented x3 HENMT: Head: normal to inspection Ears: external ears normal Mouth: Yes moist mucous membranes Eyes: Conjunctivae: conjunctivae normal Pupils: Equal, round and reactive pupils present EOM: EOMs intact bilaterally Neck: Neck: normal visual inspection Resp: Effort & Inspection: normal respiratory effort Auscultation: clear to auscultation bilaterally Cardio: Rate: regular rate Rhythm: regular rhythm GI: GI Palp: Yes Soft to palpation and No Tenderness to palpation present (GI) Auscultation: normal bowel sounds Back/Spine/Pelvis: Cervical Spine: cervical ROM normal Thoracic/Lumbar Spine: thoraco-lumbar ROM normal Skin: General skin exam: normal color Rashes: no rashes Neuro: General: patient oriented x3, moves all extremities, no focal motor deficits and CN's II-XI intact bilaterally Speech: normal speech Gait exam (Neuro): Normal gait present Extrem: General: normal to inspection and no clubbing, cyanosis or yousif
[2022-10-12 16:02] LABS: Influenza A QL RT-PCR Negative (Negative); Influenza B QL RT-PCR Negative (Negative); SARS-CoV-2 RNA PCR Negative (Negative)
[2022-10-12 16:21] VITALS: BP 129/96; PULSE 80; RESP 18; TEMP 37.2; O2SAT 97
--- NOTE | 2022-10-12 16:23 | PC.NURSE ---
Pt states she has been taking tessalon pearls and amoxicillin along with an Albuterol inhaler for her symptoms.
== END 2022-10-12 16:32 | disposition home or self-care (01) ==
PROVIDERS: Emergency Provider Emergency Medicine; PCP Family Medicine
DX: B34.9 Viral infection, unspecified (principal); Z20.822 Contact with and (suspected) exposure to COVID-19
CPT/HCPCS: 71046; 87636; 99283

== ENCOUNTER 2023-03-17 16:15 | Emergency (ER) | payer OTHER, SELFPAY ==
--- NOTE | ~2023-03-17 | CT_ITS ---
EXAMINATION: CT abdomen pelvis wo con DATE: 03/17/2023 18:19 INDICATION: left-sided abdominal pain with hematuria TECHNIQUE: Computed tomography (CT) of the abdomen and pelvis was performed without intravenous contr ast. Automated exposure control and iterative reconstruction technique were employed. The dose-length product was 566.71 mGy-cm. COMPARISON: 02/04/2021. FINDINGS: Lower thorax: Unremarkable Liver: Normal. Biliary/Gallbladder: Cholelithiasis. No bile duct dilation. Pancreas: No mass or duct dilation. Spleen: Normal. Adrenals:No mass. Kidneys: Bilateral nonobstructing calculi. No suspicious mass. Moderate left caliectasis and pelviect asis. Bilateral perinephric stranding, greater on the left. GI tract: No small or large bowel dilation. Normal appendix. Diverticulosis without diverticulitis. Mesentery/Peritoneum: No ascites, mass, or free air. Retroperitoneum: No mass. Pelvis: 5 mm calcification in the left UVJ. Moderate left ureterectasis. Normal urinary bladder and u terus.. Soft Tissues: Soft tissues and body wall unremarkable. Bones: No acute osseous finding. IMPRESSION: 5 mm calcification in the left UVJ causing moderate obstructive uropathy. Reviewed, dictated and finalized at location K.
[2023-03-17 16:15] VITALS: BP 170/82; PULSE 77; RESP 15; TEMP 36.4; O2SAT 96
--- NOTE | 2023-03-17 16:21 | ED.ABDPAIN ---
HPI - Abdominal Pain General Chief Complaint: Unspecified Stated Complaint: abdominal pain Time Seen by Provider: 03/17/23 16:21 Source: patient Mode of arrival: ambulatory Limitations: no limitations History of Present Illness HPI narrative: 57-year-old female, smoker with hypothyroidism, factor 5 Leiden, GERD, diverticulosis, gallstones, status post , depression presents with -- left flank pain/ Left lower quadrant abdominal pain. patient has a history of constipation. pain is intermittent. No radiation of the pain. -- Nausea without any vomiting. Patient was recently started on semaglutide for weight loss. No fever or chills. positive family history of kidney stones MD elicited complaint: abdominal pain Pertinent past history: constipation Onset (ago): hour(s) ( Started 12 hours ago) Pain Consistency: intermittent Location: LLQ and L flank Quality: aching Radiation: none Migration to: no migration Exacerbating factors: nothing Relieving factors: nothing Associated symptoms: nausea and constipation Related Data Patient : No Home Medications Medication Instructions Recorded Confirmed aspirin 81 mg tablet 81 mg PO DAILY 10/18/21 03/17/23 escitalopram oxalate 20 mg tablet 10 mg PO DAILY 10/18/21 03/17/23 levothyroxine 100 mcg tablet 100 mcg PO DAILY 10/18/21 03/17/23 (Euthyrox) omeprazole 20 mg tablet,delayed 20 mg PO DAILY 10/18/21 03/17/23 release semaglutide (weight loss) 0.25 0.25 mg subcut WEEKLY 03/17/23 03/17/23 mg/0.5 mL subcutaneous pen injector (Wegovy) Allergies Allergy/AdvReac Type Severity Reaction Status Date / Time No Known Allergies Allergy Unknown Verified 03/17/23 16:27 Review of Systems Review of Systems: All systems reviewed & are unremarkable except as noted in HPI and below Constitutional: Constitutional: Reports as per HPI and Reports no additional constitutional complaints Eyes: Eyes: Reports as per HPI and Reports no additional eye complaints ENT: Reports system reviewed and no additional complaints, except as documented and Reports as per HPI Cardiovascular: Cardiovascular: Reports as per HPI and Reports no additional cardiovascular complaints Respiratory: Respiratory: Reports as per HPI and Reports no additional respiratory complaints Gastrointestinal: Gastrointestinal: Reports as per HPI, Reports no additional gastrointestinal complaints, Reports abdominal pain, Reports constipation and Reports nausea Genitourinary: Genitourinary: Reports no additional female genitourinary complaints and Reports as per HPI Musculoskeletal: Musculoskeletal: Reports no additional musculoskeletal complaints and Reports as per HPI Integumentary/Breasts: Skin/Breast: Reports system reviewed and no additional complaints, except as docu and Reports as per HPI Neurologic: Reports system reviewed and no additional complaints, except as documented and Reports as per HPI Psychiatric: Psychiatric: Reports no additional psychiatric complaints and Reports as per HPI Endocrine: Endocrine: Reports no additional endocrine complaints and Reports as per HPI Hematologic/Lymphatic: Hematologic/Lymphatic: Reports no additional hematologic/lymphatic complaints and Reports as per HPI Allergic/Immunologic: Allergic/Immunologic: Reports no additional allergic/immunologic complaints and Reports as per HPI PMFSH Past Medical History Medical History Bloating delivery delivered Cholelithiasis Chronic GERD Colon cancer screening Colon, diverticulosis Depression Epigastric pain Factor 5 Leiden mutation, heterozygous Hypothyroid Surgical History Surgical History H/O hand surgery H/O knee surgery Family History Family History Mother Diabetes mellitus Family history of malignant neoplasm Other No sig
[2023-03-17] MEDS: LACTATED RINGERS 1,000 ML 150 ML IV CONT (16:55)
[2023-03-17] MEDS: ONDANSETRON INJ 4 MG/2 ML VIAL IV PUSH (16:57)
[2023-03-17] MEDS: HYDROmorphone HCL INJ (*CRX) 2 MG/ML VIAL 0.5 MG IV PUSH (16:59)
[2023-03-17 17:03] LABS: Appearance Urine Slightly Cloudy (Clear); Bilirubin Urine Negative (Negative); Blood Urine 3+ (Negative); Color Urine Yellow (Yellow); Glucose Urine UA Negative (Negative); Ketones Urine Negative (Negative); Leukocyte Esterase Ur Negative LEU/UL (Negative); Nitrate Urine Negative (Negative); Protein Urine Negative (Negative); Specific Grav Ur 1.025 (1.010-1.020); Urobilinogen Urine 0.2 mg/dL (0.2-1.0)
[2023-03-17 17:06] LABS: Pregnancy On Board Control Positive; Urine Pregnancy Test Negative
[2023-03-17 17:09] LABS: Add Urine Microscopic? YES
[2023-03-17 17:10] LABS: Bacteria Urine Trace /hpf; RBC Urine 51-75 /hpf (0-2); Squamous Epithelial Cell Urine Few /hpf (Few); WBC Urine None seen /hpf (0-3)
[2023-03-17 17:30] VITALS: BP 130/64; PULSE 76; RESP 16; O2SAT 98
[2023-03-17 17:30] LABS: Basophils Absolute Auto 0.05 K/mm3 (0.00-0.10); Basophils Percent Auto 0.6 % (0.0-1.0); Eosinophils Absolute Auto 0.11 K/mm3 (0.02-0.50); Eosinophils Percent Auto 1.3 % (1.0-6.0); Hemoglobin 13.7 g/dL (12.0-15.0); Immature Granulocyte Absolute 0.02 K/mm3 (0.00-0.00); Immature Granulocyte Percent A 0.2 % (0.0-0.0); Immature Platelet Fraction Pct 8.7 % (1.0-7.0); Lymphocytes Absolute Auto 2.19 K/mm3 (1.10-4.50); Lymphocytes Percent Auto 26.1 % (18.0-42.0); Mean Corpuscular HGB Conc 32.6 g/dL (32.0-36.0); Mean Corpuscular Hemoglobin 31.7 pg (27.0-31.0); Mean Corpuscular Volume 97.2 fL (78.0-102.0); Mean Platelet Volume 12.4 fl (9.2-11.8); Monocytes Absolute Auto 0.51 K/mm3 (0.10-0.90); Monocytes Percent Auto 6.1 % (2.0-11.0); Neutrophils Absolute Auto 5.5 K/mm3 (1.7-7.2); Neutrophils Percent Auto 65.7 % (50.0-70.0); Platelet Count Result 161 K/mm3 (150-420); Red Blood Count 4.32 M/mm3 (4.20-5.40); Red Cell Distribution Width 12.5 % (11.6-14.4); White Blood Count 8.4 K/mm3 (4.8-10.8)
[2023-03-17 17:44] LABS: Alanine Aminotransferase 17 U/L (14-59); Albumin Level 3.5 g/dL (3.4-5.0); Alkaline Phosphatase 81 U/L (46-116); Anion Gap 9 mmol/L (8-16); Aspartate Amino Transferase 25 U/L (15-37); Bilirubin,Total 0.4 mg/dL (0.00-1.00); Blood Urea Nitrogen 15 mg/dL (7-18); Calcium 9.2 mg/dL (8.5-10.1); Carbon Dioxide 26 mmol/L (21-32); Chloride 107 mmol/L (98-108); Estimated CRCL calculation 55 ml/min; Estimated Glomerular Filt Rate 52; Glucose 95 mg/dL (70-99); Osmolality Calculated 294 mOsm/kg (285-295); Potassium 3.9 mmol/L (3.5-5.1); Sodium 142 mmol/L (136-145); Total Protein 6.5 g/dL (6.4-8.2)
[2023-03-17 17:44] LABS: Lipase 69 U/L (16-77)
[2023-03-17 17:47] LABS: Lactic Acid Reflex 1.4 mmol/L (0.4-2.0)
[2023-03-17 17:51] LABS: Partial Thromboplastin Time 21.5 SEC (23.90-30.70); Prothrombin Time 10.9 Seconds (9.50-12.10)
[2023-03-17 18:54] VITALS: BP 178/84; PULSE 77; RESP 19; TEMP 36.9; O2SAT 98
[2023-03-17 19:45] VITALS: BP 132/77; PULSE 89; RESP 18; TEMP 36.2; O2SAT 100
[2023-03-17] MEDS: TAMSULOSIN HCL 0.4 MG CAPSULE PO (19:48)
[2023-03-17] MEDS: CIPROFLOXACIN 500 MG TAB PO (19:48)
[2023-03-17] MEDS: KETOROLAC 30 MG/ML VIAL (*BKC) IV PUSH (19:49)
== END 2023-03-17 19:50 | disposition home or self-care (01) ==
PROVIDERS: Emergency Provider Internal Medicine Critical Care Medicine; PCP Family Medicine
DX: N20.1 Calculus of ureter (principal); E03.9 Hypothyroidism, unspecified; Z79.82 Long term (current) use of aspirin; Z87.891 Personal history of nicotine dependence
CPT/HCPCS: 36415; 74176; 80053; 81001; 81025; 83605; 83690; 85025; 85055; 85610; 85730; 96361; 96374; 96375; 99284; A9270; J1170; J1885; J2405; J7120

== ENCOUNTER → 2023-04-02 17:12 | Outpatient (CLI) | payer OTHER, SELFPAY ==
--- NOTE | ~2023-04-02 | MM_ITS ---
EXAMINATION: MM screening fidelina BI w [facility] HISTORY: Screening mammogram TECHNIQUE: Craniocaudal and mediolateral oblique 3-D tomosynthesis images were obtained and synthetic 2-D images were generated. CAD analysis was submitted and interpreted. COMPARISON: 12/20/2021 and 11/30/2020 BREAST PARENCHYMAL COMPOSITION:There are scattered areas of fibroglandular density. FINDINGS: No suspicious mass, calcification, or architectural distortion are identified in either juanita ast to suggest malignancy. There has been no suspicious interval change. IMPRESSION: No mammographic evidence of malignancy. Recommend routine screening mammography in one year. BI-RADS Category 1: Negative Reviewed, dictated and finalized at location .
== END ==
PROVIDERS: PCP Obstetrics & Gynecology; Visit Provider Family Medicine
DX: Z12.31 Encounter for screening mammogram for malignant neoplasm of breast (principal)
CPT/HCPCS: 77063; 77067

== ENCOUNTER 2023-09-22 14:03 | Outpatient (CLI) | payer OTHER, SELFPAY ==
--- NOTE | 2023-09-22 14:16 | ECG_ITS ---
Measurements Intervals [place] Rate: 69 P: 25 ME: 179 QRS: -26 QRSD: 101 T: 2 QT: 420 QTc: 452 Interpretive Statements SINUS RHYTHM BORDERLINE T WAVE ABNORMALITY- INFERIOR LEADS BASELINE WANDER- V2 BORDERLINE ECG COMPARED TO ECG 06/07/2021 15:29:41 SINUS RHYTHM NOW PRESENT Electronically Signed On 09-22-2023 14:34:39 [employer] by Vincenzo Ramires D.O.
[2023-09-22 14:18] LABS: Hematocrit 43.9 % (35.0-49.0); Hemoglobin 13.3 g/dL (12.0-15.0)
[2023-09-22 14:40] LABS: INR 0.9; Partial Thromboplastin Time 26.3 SEC (23.90-30.70); Prothrombin Time 10.3 Seconds (9.50-12.10)
[2023-09-22 15:05] LABS: Anion Gap 6 mmol/L (8-16); Blood Urea Nitrogen 18 mg/dL (7-18); Calcium 8.5 mg/dL (8.5-10.1); Carbon Dioxide 30 mmol/L (21-32); Chloride 107 mmol/L (98-108); Estimated Glomerular Filt Rate 55; Glucose 87 mg/dL (70-99); Osmolality Calculated 296 mOsm/kg (285-295); Potassium 4.2 mmol/L (3.5-5.1); Sodium 143 mmol/L (136-145)
== END 2023-09-22 14:04 | disposition home or self-care (01) ==
LOC: CHSLAB 14:05
PROVIDERS: PCP Family Medicine; Visit Provider Anesthesiology
DX: Z01.818 Encounter for other preprocedural examination (principal); K76.0 Fatty (change of) liver, not elsewhere classified
CPT/HCPCS: 36415; 80048; 85014; 85018; 85610; 85730; 93005

== ENCOUNTER 2023-09-28 00:14 | Day surgery (SDC) | payer OTHER, SELFPAY ==
[2023-09-21 12:56] VITALS: BMI 29.9
--- NOTE | 2023-09-21 13:07 | PC.NURSE ---
Report to the Outpatient Waiting Room, entrance under the green pavilion located off [facility], at time 6:00 on date 09/28/23. Planned Procedure Time: 7:30. Time changes happen often and if your time is changed the preop area will call you the afternoon before. - You and your visitor will be asked to self-screen and do not enter if you have any COVID symptoms. - A mask is optional within the hospital at this time. Patients may have clear liquids (water, carbonated beverages, clear teas, apple juice) until 3 hours prior to surgery with a maximum of 20 ounces. - No food from midnight until time of surgery Take the following medications with a SIP of water the morning of surgery: LEVOTHYROXINE DO NOT STOP ANY OF YOUR OTHER PRESCRIPTION MEDICATIONS PRIOR TO SURGERY ?EXCEPT THE FOLLOWING Medications to discontinue per physician: PT HAS ALREADY STOPPED WEGOVY AND ASPIRIN Date to take last dose: N/A Please no make-up, nail danish, hairspray, perfume, deodorant, or body powder the day of surgery. No jewelry (including any body piercings) or valuables the day of surgery, leave them at home. Please take a shower or bath the night before, or the morning of, surgery with an antibacterial soap. Wear comfortable, loose fitting clothing. - Jewelry must be removed prior to entering the operating room. Rings and piercings that are not removed may be cut off. - The hospital will not accept responsibility for valuables. - Please leave all valuables, including medications, at home the day of surgery. If you are going home after surgery, a licensed drop hammer pile driver operator must drive you home. - NO public transportation without another adult if you receive anesthesia. - We recommend that an adult stay with you for 24 hours following discharge. - We also recommend that you do not drive, make important decision, drink alcoholic beverages, or take any drugs that were not prescribed by your health care provider for at least 24 hours after your discharge time. Follow any additional instructions given to you from your surgeon. If you or anyone in your household have experienced Covid symptoms in the past week, please notify your surgeon or the nurse liaison at the phone number below for possible testing. Telephone instructions given to PT - SHORTY RUBALCAVA and asked if any additional questions and then verbalized understanding. Patient advised to call surgeon office or pre surgery nurse liaison [phone] if any additional questions.
--- NOTE | 2023-09-27 13:31 | WPDANESEPPF ---
Anes - Initial Pre Proc Eval Procedure: Operation Date: 09/28/23 07:30 Proposed Procedures p Bilateral Breast Augmentation - Sin Craig MD s Bilateral Breast Mastopexy with Galaflex - Sin Craig MD s Abdominoplasty with Liposuction - Sin Craig MD Date/Time: 09/27/23 13:31 Surgeon: Sin Craig MD Pre Op Diagnosis: Skin Laxity, Micromastia, Breast Ptosis Patient Data Age: 58 Gender: F Height: 1.65 m Weight: 81.65 kg Allergies Allergy/AdvReac Type Severity Reaction Status Date / Time codeine AdvReac Itching Verified 09/28/23 06:26 Home Medications Medication Instructions Recorded Confirmed Type aspirin 81 mg tablet 81 mg PO DAILY 10/18/21 09/21/23 History escitalopram oxalate 20 mg tablet 10 mg PO HS 10/18/21 09/28/23 History levothyroxine 100 mcg tablet 100 mcg PO DAILY 10/18/21 09/28/23 History (Euthyrox) omeprazole 20 mg tablet,delayed 20 mg PO DAILY 10/18/21 09/28/23 History release semaglutide (weight loss) 0.25 0.25 mg subcut WEEKLY 03/17/23 09/21/23 History mg/0.5 mL subcutaneous pen injector (Wegovy) Patient hx anesthesia problems: none Family hx anesthesia problems: none Results Review: All pre-operative results and documents have been reviewed as part of the pre-operative evaluation. [facility] Past Medical History Medical History (Updated 09/27/23 @ 13:32 by Yohannes Rangel DO) Bloating delivery delivered Cholelithiasis Chronic GERD Colon cancer screening Colon, diverticulosis Depression DVT (deep venous thrombosis) Epigastric pain Factor 5 Leiden mutation, heterozygous Fatty liver Hypothyroid Surgical History Surgical History H/O hand surgery H/O knee surgery Family History Family History Mother Diabetes mellitus Family history of malignant neoplasm Other No significant family history Social History Social History Smoking packs per day: 1 Smoking cigarettes per day: 20.0 Years smoked: 40 Smoking pack-years: 40.00 Smoking status: Former smoker Tobacco type: cigarettes Smoking end date: 11/08/19 Alcohol intake: never Alcohol use details: VERY RARE Substance use: never Substance use type: does not use Living arrangements: with family Gender identity (if verbalized by the patient): Female Sexual Orientation (if Verbalized by the Patient): Straight or Heterosexual Spiritual care concerns: No Anes - Eval Final PreProcedure Day of Procedure 09/27/23 13:31 Patient weight: obese Heart: regular rate and rhythm Lungs: clear to auscultation Airway: Mallampati scale class II Neurological: alert and oriented Last oral intake: >/= 8 hours ASA classification: III Emergent: no Anesthetic plan: proceed Anesthesia type and monitoring: general ETT and standard monitoring Results Review: All pre-operative results and documents have been reviewed as part of the pre-operative evaluation. Informed Consent: The patient's anesthetic plan and its attendant risks and benefits were discussed with the patient/family/POA. Questions were solicited and answers provided to the satisfaction of the patient/family/POA.
[2023-09-28] VITALS (13 sets, daily range): BP systolic 108–145; BP diastolic 56–113; PULSE 70–106; RESP 12–20; TEMP 36.6–37.3; O2SAT 94–100
[2023-09-28 06:50] LABS: Urine Cotinine NEGATIVE
[2023-09-28] MEDS: LACTATED RINGERS 1,000 ML 30 ML IV CONT ×2 (06:53→15:06)
--- NOTE | 2023-09-28 07:24 | WPDHPUPDATE1 ---
History and Physical Update Update Date/Time: 09/28/23 07:24 History and Physical has been reviewed, including an updated exam of the patient. There are NO changes in the patient's condition. Risks, benefits, and alternatives have been discussed and questions answered. Patient agrees to proceed with procedure.
--- NOTE | 2023-09-28 07:24 | WPDHPUPDATE1 ---
History and Physical Update Update Date/Time: 09/28/23 07:24 History and Physical has been reviewed, including an updated exam of the patient. There are NO changes in the patient's condition. Today again we had a lengthy discussion about her history of DVT, unique risks to her including repeat DVT/PE/. Again discussed signs and symptoms. Options for postoperative care including but not limited to option of not proceeding (not having surgery) which had been discussed at each visit. She has elected for 30 days of Lovenox after hearing options. Will proceed. Risks, benefits, and alternatives have been discussed and questions answered. Patient agrees to proceed with procedure.
--- NOTE | 2023-09-28 07:26 | W.PM.PROC2 ---
Procedure Note - Detailed Date of Procedure 09/28/23 Pre-op Diagnosis Skin Laxity, Micromastia, Breast Ptosis Post-op Diagnosis Same Procedure Performed 1. Bilateral augmentation mastopexy with Galaflex. 2. Progressive tension abdominoplasty with suction lipectomy. Surgeon Sin Craig MD Anesthesia General Findings Bilateral Inverted T mastopexy Superior medial pedicle Bilateral Natsamantha Inspira SoftTouch 460 cc implants Right - REF# [id number] SN [id number] Left - REF# [id number] SN [id number] Tissue removed: 1,919 grams Lipoaspirate: 2,000 cc Description of Procedure They are here today for the above procedures. Previously and again today the risks, benefits, alternatives were discussed in extensive detail. I wanted them to be very realistic about the risks involved as well as expectations. We discussed aftercare and what to monitor for. I was very upfront about the risks of wound breakdown leading to loss of skin, open wounds, and need for additional procedures with permanent abdominal deformity. We discussed DVT/PE risks and management (See H&P update). Made sure answered all of their questions to their satisfaction today and consent was obtained. They were marked in the preoperative holding area with their verification. The patient was taken to the operating room. Anesthesia was provided by anesthesiology. A Khan catheter was started. Placed prone on the operating room table with care taken to protect from injury. Prepped and draped in a standard sterile fashion. A surgical time-out was taken. Stab incisions were made and tumescent solution was infiltrated. Once adequate time was allowed for hemostasis a 5mm basket and 3mm multi hole cannula were utilized to complete suction lipectomy based on S.A.F.E. technique in multiple planes and passes. Suction lipectomy continued to result based on pre-operative planning, intra-operative observation, and rolling pinch test which were in full agreement. Patient was then placed supine with care taken to protect from injury. Breast She was prepped and draped in a standard sterile fashion. Stab incisions were made and a low volume tumescent solution was used laterally for pain control / hemostasis. Tegaderm nipple Manning were placed. A 15 blade used to make an incision just superior to the inframammary fold leaving a cusp of de-epithelized tissue at the t junction. Dissection was continued until the chest wall as identified. I incised the pectoralis major along its inferior border and completely released the inferior border leaving the medial border intact. I created a subpectoral pocket in the appropriate dimensions based on our preoperative planning for the implant. I then copiously irrigated with saline solution and verified a strict hemostasis. Next the use a triple antibiotic and Betadine containing solution to irrigate the pocket. I washed my gloves with the triple antibiotic and Betadine solution. We washed the implant immediately upon opening it with this solution and only opened it when we needed it. I used implant funnel and no-touch technique. The implant was introduced into the pocket using the funnel. Having verified positioning of the implant this was closed using 2-0 PDS. I tailor tacked the breast into position. Placed her in a sitting position. Verified the nipple-areolar location based on preoperative planning as well as intraoperative observations and measurements in full agreement. She was placed supine. I de-epithelialized the pedicle. I then removed the inferior central portion of the breast need making sure the implant was well protected. I elevated medial and lateral tissue flaps as well for planned closure. Galalfex was soaking in Betadine solution on the back table. Trimmed and sutured into place with 2-0 Vicryl I closed along the IMF with 2-0 Stratafix. Along the vertical with 2-0 PDS. I closed around the areola with 3-0 strata fix. 3-0 [place]
[2023-09-28] MEDS: LACTATED RINGERS IRRIG 1,000 ML, LIDOCAINE HCL 1% LOCAL INJ 50 ML, EPINEPHrine HCL INJ ... INFILTRATE (07:28)
[2023-09-28] MEDS: NACL 0.9% IRRIG POUR BOTTLE 900 ML, GENTAMICIN SULFATE INJ 160 MG, ceFAZolin 2 GM, POVI... IRRIGATION (07:28)
[2023-09-28] MEDS: BUPIVACAINE/EPINEPHRINE 0.5% 50 ML VIAL 60 ML INFILTRATE (07:28)
[2023-09-28] MEDS: TRANEXAMIC ACID 1,000MG/ISO100 1,000 MG/100 ML BAG 200 MG IVPB (07:38)
[2023-09-28] MEDS: ceFAZolin 2 GM/D5W 50 ML 2 GM/50 ML BAG IVPB (07:43)
[2023-09-28] MEDS: ceFAZolin SODIUM 1 GM VIAL IV PUSH (13:41)
[2023-09-28] MEDS: fentaNYL CITRATE INJ (*CRX) 100 MCG/2 ML VIAL 25 MCG IV PUSH ×8 (15:19→16:10)
[2023-09-28] MEDS: LACTATED RINGERS 1,000 ML 125 ML IV CONT (17:14)
[2023-09-28] MEDS: KETOROLAC 10 MG TABLET PO ×2 (17:52→23:10)
[2023-09-28] MEDS: carisoprodoL (*CRX) 350 MG TABLET PO ×2 (17:52→23:10)
[2023-09-28] MEDS: oxyCODONE/ACETAMINOPHEN (*CRX) 5-325 MG TABLET 2 TABLET PO (19:50)
[2023-09-28] MEDS: ENOXAPARIN 40 MG/0.4 ML SYRINGE SUB-Q (19:50)
[2023-09-28] MEDS: DOCUSATE SODIUM 100 MG CAPSULE PO (21:12)
[2023-09-28] MEDS: ESCITALOPRAM OXALATE 10 MG TABLET PO (21:13)
[2023-09-29] MEDS: MORPHINE SULFATE (*CRX) 2 MG/ML INJ IV PUSH ×2 (01:20→10:18)
[2023-09-29] MEDS: carisoprodoL (*CRX) 350 MG TABLET PO ×2 (05:20→12:36)
[2023-09-29] MEDS: KETOROLAC 10 MG TABLET PO ×2 (05:20→12:35)
[2023-09-29 05:30] VITALS: BP 109/57; PULSE 97; RESP 18; TEMP 36.7; O2SAT 96
--- NOTE | 2023-09-29 06:48 | WPDPN ---
Progress Note: A&P Assessment and Plan (1) Skin laxity: Code(s): L57.4 - Cutis laxa senilis Status: Acute Assessment and Plan: Doing well after bilateral augmentation mammaplasty and progressive tension abdominoplasty with suction lipectomy. Will discharge home. Today we had a lengthy discussion about the care. Activity limitations. What to monitor for. What is an emergency and when to dial 911 / proceed to the ER. This was a lengthy open ended conversation making sure they were well informed. Answered all their questions. They voiced a clear understanding. Will discharge home. Call with any questions or concerns in the meantime. (2) Localized adiposity: Code(s): E65 - Localized adiposity Status: Acute (3) Micromastia: Code(s): N64.82 - Hypoplasia of breast Status: Acute (4) Breast ptosis: Code(s): N64.81 - Ptosis of breast Status: Acute (5) History of DVT (deep vein thrombosis): Code(s): Z86.718 - Personal history of other venous thrombosis and embolism Status: Acute Assessment and Plan: 30 day of Lovenox (already started). Had a lengthy discussion about signs / symptoms. This is emergency and to proceed to ER / dial 911 with any concerns. Subjective Date/time seen: 09/29/23 06:48 Interval history: Doing well after bilateral augmentation mammaplasty and progressive tension abdominoplasty with suction lipectomy. Ambulating. Pain controlled. No nausea / vomiting. No fevers / chills. No shortness of breast. No chest pain. No calf tenderness. Review of Systems Review of Systems: All systems reviewed & are unremarkable except as noted in HPI and below Exam Narrative: Alert & Oriented NOD Respiratory unlabored Bilateral breasts healing well. No signs of infection. No hematoma. No seroma. Good color and capillary refill. Abdomen is healing well. No signs of infection. No hematoma. No seroma. Good color and capillary refill. Drain removed. No calf tenderness. Negative Briseyda's Objective Data Vital Signs Vital Signs: Vital Signs - 24 hr 09/28/23 07:00 09/28/23 07:28 09/28/23 15:06 Temperature 36.6 C 36.7 C Pulse Rate 70 106 H Respiratory Rate 16 18 Blood Pressure 145/113 H 136/71 126/65 Pulse Oximetry 99 98 Oxygen Delivery Room Air Simple Face Mask Oxygen Flow Rate 8 09/28/23 15:15 09/28/23 15:25 09/28/23 15:30 Temperature Pulse Rate 106 H 101 H Respiratory Rate 20 14 Blood Pressure 130/59 L 127/63 Pulse Oximetry 100 100 100 Oxygen Delivery Simple Face Mask Simple Face Mask Room Air Oxygen Flow Rate 8 4 09/28/23 15:45 09/28/23 16:00 09/28/23 16:12 Temperature Pulse Rate 105 H 104 H 104 H Respiratory Rate 13 12 12 Blood Pressure 124/62 116/61 124/57 L Pulse Oximetry 100 94 95 Oxygen Delivery Room Air Room Air Room Air Oxygen Flow Rate 09/28/23 16:30 09/28/23 16:30 09/28/23 19:50 Temperature 37.2 C Pulse Rate 105 H 105 H Respiratory Rate 14 14 Blood Pressure 108/56 L Pulse Oximetry 96 96 96 Oxygen Delivery Nasal Cannula Nasal Cannula Oxygen Flow Rate 2 2 09/28/23 20:28 09/28/23 23:10 09/28/23 23:10 Temperature 37.3 C 37.0 C Pulse Rate 90 83 Respiratory Rate 12 16 Blood Pressure 123/64 119/63 Pulse Oximetry 100 100 100 Oxygen Delivery Nasal Cannula Oxygen Flow Rate 1 09/29/23 05:30 09/29/23 05:30 Temperature 36.7 C Pulse Rate 97 Respiratory Rate 18 Blood Pressure 109/57 L Pulse Oximetry 96 Oxygen Delivery Room Air Oxygen Flow Rate Intake/Output Intake/Output: Intake & Output 09/26/23 09/27/23 09/28/23 09/29/23 23:59 23:59 23:59 23:59 Intake Total 1090 1000 Output Total 900 500 Balance 190 500 Meds/Results Medications: Active Medications Generic Name Dose Route Start Last Admin Trade Name Freq PRN Reason Stop Dose Admin Carisoprodol 350 mg 09/28/23 18:00 09/29/23 05:20 Carisoprodol (*Crx
--- NOTE | 2023-09-29 06:52 | P.DS_ITS ---
DS: Admitting Diagnosis Discharge Date 09/29/2023 Admitting Diagnosis 1. Micromastia 2. Breast ptosis 3. Skin Laxity 4. Localized adiposity 5. Factor 5 (heterozygote) 6. History DVT DS: Discharge Diagnosis Discharge Diagnosis (1) Skin laxity: Code(s): L57.4 - Cutis laxa senilis Status: Acute (2) Localized adiposity: Code(s): E65 - Localized adiposity Status: Acute (3) Micromastia: Code(s): N64.82 - Hypoplasia of breast Status: Acute (4) Breast ptosis: Code(s): N64.81 - Ptosis of breast Status: Acute (5) Factor 5 Leiden mutation, heterozygous: Code(s): D68.51 - Activated protein C resistance Status: Acute (6) History of DVT (deep vein thrombosis): Code(s): Z86.718 - Personal history of other venous thrombosis and embolism Status: Acute DS: Summary Hospital Course Hospital Course: Underwent bilateral augmentation mammaplasty and progressive tension abdominoplasty with suction lipectomy. Postoperatively has done well. Will discharge home. 30 days of Lovenox and on ASA. Lengthy discussions of signs / symptoms of DVT and in the event of concerns proceed to ER / dial 911 immediately. Will see her back. Time Spent with Patient Time attestation: Total time spent providing and/or coordinating discharge services: Discharge Plan Discharge Patient Disposition: Home, Self-Care Discharge Instructions: POST OPERATIVE DISCHARGE INSTRUCTIONS SIN CRAIG M.D. [facility] [place] [address] * No driving for 24 hours after anesthesia and while you are taking pain medication. * Take all prescribed medication as directed * Diet as tolerated. * No lifting or activity that raises blood pressure for 48 hours. * Regular walking / ambulation. * May shower 24 hours after surgery. Once you shower do not take pain medication before showering as the combination of medication and heat may cause you to feel dizzy or pass out. * No pools or tubs for 2 weeks. * Slowly stand up straight as tolerated. * No straining or lifting more than 20 pounds. * If no bowel movement within 24 hours may use laxative. * Call with any questions or concerns. * Dressing Care: Continue abdominal binder / foam and surgical bra 23 hours per day. If you have any questions or concerns, please call the office . If it is after hours you will be directed to the control room helper exchange. Shortness of breath, chest pain, or other medical emergency dial 911 / proceed to the [facility] Room. Stand Alone Forms: General Discharge Instructions Follow-up/Referrals: Sin Craig MD [Physician] - 1 Week Discharge Medications: Continued levothyroxine [Euthyrox] 100 mcg tablet 100 mcg PO DAILY aspirin 81 mg Tablet 81 mg PO DAILY escitalopram oxalate 20 mg tablet 10 mg PO HS omeprazole 20 mg Tablet,Delayed Release (Dr/Ec) 20 mg PO DAILY Held Wegovy 0.25 mg/0.5 mL Pen Injector 0.25 mg SUBCUT WEEKLY Hold Instructions: Resume on 11/10/23. Patient Comments: PT TAKES ON WEDNESDAY
[2023-09-29 08:10] VITALS: BP 104/54; PULSE 97; RESP 16; TEMP 37.4; O2SAT 94
[2023-09-29] MEDS: LEVOTHYROXINE SODIUM 100 MCG TABLET PO (10:08)
[2023-09-29] MEDS: DOCUSATE SODIUM 100 MG CAPSULE PO (10:09)
--- NOTE | 2023-09-29 13:41 | WPDANESPN ---
Anes - Prog Note Post-Op Date/Time: 09/29/23 13:41 Cardiovascular status: normal Respiratory status: normal Airway patency: baseline Mental status: baseline Post-Op hydration status: normal Vital Signs: Last Vital Signs Temp 99.3 F 09/29/23 08:10 Pulse 97 09/29/23 08:10 Resp 16 09/29/23 08:10 BP 104/54 L 09/29/23 08:10 Pulse Ox 94 09/29/23 08:10 O2 Del Method Room Air 09/29/23 10:34 O2 Flow Rate 1 09/28/23 23:10 Pain Score (VAS): 0/10 I/O: Intake & Output 09/28/23 09/29/23 09/29/23 23:59 07:59 15:59 Intake Total 1040 1000 Output Total 650 500 0 Balance 390 500 0 Post-procedural complaints: none Patient Feedback: Patient satisfied with anesthetic care.
== END 2023-09-29 15:06 | disposition home or self-care (01) ==
LOC: ANHSURGERY 07:34 → ANHOB2 16:22
PROVIDERS: PCP Family Medicine; Visit Provider Surgery Plastic and Reconstructive Surgery
PROC: (CPT 19316; principal; 2023-09-28 07:30)
PROC: (CPT 19316; 2023-09-28 07:30)
PROC: (CPT 19316; 2023-09-28 07:30)
DX: Z41.1 Encounter for cosmetic surgery (principal); L57.4 Cutis laxa senilis; E65 Localized adiposity; N64.82 Hypoplasia of breast; N64.81 Ptosis of breast; K80.20 Calculus of gallbladder without cholecystitis without obstruction; F32.A Depression, unspecified; E03.9 Hypothyroidism, unspecified; K21.9 Gastro-esophageal reflux disease without esophagitis; D68.51 Activated protein C resistance; E66.9 Obesity, unspecified; Z68.30 Body mass index [BMI] 30.0-30.9, adult; Z79.82 Long term (current) use of aspirin; Z79.85 Long-term (current) use of injectable non-insulin antidiabetic drugs; Z87.891 Personal history of nicotine dependence; Z86.718 Personal history of other venous thrombosis and embolism; Z80.9 Family history of malignant neoplasm, unspecified
CPT/HCPCS: 19316; 15777 ×2; 15877; 80307; 99199; A9270; J0171; J0690; J1100; J1170; J1580; J1650; J2250; J2270; J2405; J2704; J3010; J7120